=== PATIENT | male | born 1985 | race Caucasian/White ===

== ENCOUNTER → 2019-11-23 09:12 | Outpatient (CLI) | payer BC, SELFPAY | PROVIDERS: PCP Internal Medicine; Visit Provider Internal Medicine | DX: Z03.818 Encounter for observation for suspected exposure to other biological agents ruled out (principal) | CPT/HCPCS: U0003 ==

== ENCOUNTER 2020-06-20 11:19 | Emergency (ER) | payer BC, SELFPAY ==
[2020-06-20 11:29] VITALS: BP 117/68; PULSE 73; RESP 14; TEMP 36.4; O2SAT 99; BMI 26.2
--- NOTE | 2020-06-20 11:34 | XR_ITS ---
PROCEDURE: XR ANKLE RT MIN 3V CLINICAL INDICATION: basketball injury on 06/19/20 Injury with pain COMPARISON: No exams were available for comparison FINDINGS: There has been prior ORIF with 4 metallic screws within the anterior aspect of the distal tibia. Soft tissue swelling is present laterally. A well-circumscribed calcific density is present at the tip of the lateral malleolus consistent with an old fracture. No acute fracture or dislocation is evident. There are old fractures of the distal tibia and fibula. IMPRESSION: Soft tissue swelling with old injury. No acute finding Dictated by: Terry Ramsey MD 06/20/2020 12:23 Terry Ramsey MD in [place] 06/20/2020 12:23
[2020-06-20 12:31] VITALS: BP 115/69; PULSE 70; RESP 14; TEMP 36.6
--- NOTE | 2020-06-20 12:34 | HMH.EDUTC ---
[facility] [place] Clinical Impression: Right ankle injury Qualifiers: Encounter type: initial encounter Qualified Code(s): S99.911A - Unspecified injury of right ankle, initial encounter Right ankle sprain Qualifiers: Encounter type: initial encounter Involved ligament of ankle: unspecified ligament Qualified Code(s): S93.401A - Sprain of unspecified ligament of right ankle, initial encounter Disposition: Home, Self-Care Condition on Discharge: Good Instructions: Ankle Sprain, DI for Ankle Sprain Additional Instructions: Rest the extremity, apply ice for 15 minutes as tolerated three or four times per day, Wear the jenni wrap for compression, Elevate the extremity as tolerated while you are resting. Take ibuprofen for pain. I sent in a prescription to your pharmacy. Follow up with Dr. Harp (orthopedics). You have an appointment in her office on June 28 at 2:00 pm. Follow up with your regular doctor. GO TO THE ER FOR ANY WORSENING SYMPTOMS Prescriptions: Ibuprofen [Ibuprofen 800mg Tablet] 800 mg PO Q8HP PRN #30 tab PRN Reason: Moderate Pain Transmission Status: Received by [facility] Referrals: Carlos Delgado [Primary Care Provider] - Sierra Harp MD [Physician] - 06/28/20 2:00 pm (Appointment made for June 28 at 2:00 pm) Forms: Work/School Release Time of Disposition: 12:37 Medical Decision Making - Medical Records Medical records reviewed: No: I reviewed the patient's medical records. - Adolfo Inquiry Pt receiving controlled substance: No Vital Signs: 06/20/20 11:29 06/20/20 12:31 Temperature 97.6 F 98 F Temperature Source Oral Pulse Rate 70 Pulse Rate [Right] 73 Respiratory Rate 14 14 Blood Pressure 115/69 Blood Pressure [Right Arm] 117/68 Blood Pressure Mean [Right Arm] 84 Blood Pressure Source [Right Arm] Automatic Cuff Blood Pressure Position [Right Arm] Sitting 02 Sat by Pulse Oximetry 99 Oxygen Delivery Method Room Air - Radiology Data #1 Image(s): Ankle Image Reviewed: Yes I reviewed the patient's radiology image, Yes I have reviewed radiologist's interpretation Preliminary Findings: No Fracture Seen PROCEDURE: XR ANKLE RT MIN 3V CLINICAL INDICATION: basketball injury on 06/19/20 Injury with pain COMPARISON: No exams were available for comparison FINDINGS: There has been prior ORIF with 4 metallic screws within the anterior aspect of the distal tibia. Soft tissue swelling is present laterally. A well-circumscribed calcific density is present at the tip of the lateral malleolus consistent with an old fracture. No acute fracture or dislocation is evident. There are old fractures of the distal tibia and fibula. IMPRESSION: Soft tissue swelling with old injury. No acute finding Dictated by: Terry Ramsey MD 06/20/2020 12:23 Terry Ramsey MD in [place] 06/20/2020 12:23 Medical Decision Narrative: I called the ortho office (Dr. Harp's) to have ortho look at the ankle x-ray. I was instructed to put the patient in a tall walking boot and give crutches for ambulation. He may do partial weight bearing ambulation if it doesn't hurt too bad. F/u in her office next week. The patient refused the walking boot. He states that he will not use it and if he decides that he would use it. [facility] [place] - General Stated complaint: right ankle injury Time Seen by Provider: 06/20/20 11:35 Mode of Arrival: Ambulatory Source of Information: Patient Limitations: No Limitations Description of Symptoms (Recalled from Triage Doc. by RN): PT TWISTED HIS RIGHT ANKLE PLAYING BASKETBALL. VERY SWOLLEN ON THE OUTSIDE OF THE ANKLE. SOME BRUISING ON FOOT AND ANKLE. NUMBNESS, TINGLING AND PAIN TO R FOOT AND ANKLE. HEENT Symptoms (Recalled from RN notes): No Resp Symptoms (Recalled from RN notes): No Skin Symptoms (Recalled from RN notes): No MS Symptoms (Recalled from RN notes): Yes (R ANKLE PAIN AND SWELLING WITH NUMBNESS AND TINGLING
== END 2020-06-20 12:43 | disposition home or self-care (01) ==
PROVIDERS: Emergency Provider Nurse Practitioner Family; PCP Internal Medicine
DX: S93.401A Sprain of unspecified ligament of right ankle, initial encounter (principal); X50.1XXA Overexertion from prolonged static or awkward postures, initial encounter; Y93.67 Activity, basketball; Y92.89 Other specified places as the place of occurrence of the external cause
CPT/HCPCS: 29515; 73610; 99202; G0463

== ENCOUNTER 2024-07-06 12:49 | Outpatient (CLI) | payer BC, SELFPAY ==
--- NOTE | 2024-07-06 12:57 | XR_ITS ---
FINAL REPORT CLINICAL HISTORY: Right lateral elbow pain states he was sledding & hurt elbow, then picked up heavy object and having more pain FINDINGS: Two views of the elbow were obtained. There is no acute fracture or dislocation. The joint spaces are intact. The soft tissues are unremarkable. IMPRESSION: No acute fracture. Reviewed, Interpreted and Dictated by Александр Chávez MD Transcribed by Teresa Corrales Authenticated and [facility]
--- NOTE | 2024-07-06 12:57 | XR_ITS ---
FINAL REPORT CLINICAL HISTORY: Chronic neck pain and stiffness FINDINGS: SPINE CERVICAL COMPLETE/FLEXION & EXT Seven views of the cervical spine were obtained. The disc spaces are well-preserved. There is no malalignment. There is no instability with flexion and extension maneuver. IMPRESSION: Unremarkable cervical spine Reviewed, Interpreted and Dictated by Александр Chávez MD Transcribed by Teresa Corrales Authenticated and [facility]
[2024-07-06 17:29] LABS: Basophils % 0.8 % (0.1-2.0); Eosinophils # 0.2 K/mm3 (0.0-0.4); Hematocrit 46.5 % (42.0-52.0); Hemoglobin 16.1 g/dL (14.1-18.0); Lymphocytes # 1.6 K/mm3 (0.7-4.5); Lymphocytes % 30.7 % (10-50); Mean Corpuscular HGB Conc 34.6 g/dL (31.8-35.4); Mean Corpuscular Hemoglobin 30.9 pg (27.0-31.2); Mean Corpuscular Volume 89.3 fl (80-94); Mean Platelet Volume 12.5 fl (7.4-10.4); Monocytes # 0.5 K/mm3 (0.1-1.0); Monocytes % 8.7 % (1.7-9.3); Neutrophils % 56.6 % (37.0-80.0); Platelet Count 177 K/mm3 (142-424); Red Blood Count 5.21 M/mm3 (4.60-6.20); Red Cell Distribution Width 12.1 % (11.5-17.5); White Blood Count 5.3 K/mm3 (4.8-10.8)
[2024-07-06 18:36] LABS: Alanine Aminotransferase 28 U/L (12-78); Albumin Level 4.5 g/dl (3.5-5.0); Albumin/Globulin Ratio 1.4 (1.1-1.8); Alkaline Phosphatase 60 U/L (38-126); Anion Gap 12.6 mEq/L (5-15); Aspartate Amino Transferase 30 U/L (17-59); Bilirubin,Total 0.9 mg/dl (0.2-1.3); Blood Urea Nitrogen 18 mg/dl (9-20); Calcium 9.6 mg/dl (8.4-10.2); Carbon Dioxide 28 mmol/L (22.0-30.0); Chloride 103 mmol/L (98-107); Chol/HDL Ratio 3.7 (1-3.5); Cholesterol 178 mg/dl (140-200); Estimated Glomerular Filt Rate 61 ml/min (>60); GFR (African American) 74 ML/MIN (>60); Globulin 3.2 g/dL (1.3-3.2); Glucose 73 mg/dl (74-100); HDL Cholesterol 48 mg/dl (40-60); Potassium 4.6 mmoL/L (3.5-5.1); Sodium 139 mmol/L (136-145); Total Protein,Serum 7.7 g/dl (6.3-8.2); Triglycerides 78 mg/dl (30-150); VLDL Cholesterol 16 mg/dL (0-40)
[2024-07-06 18:47] LABS: Direct LDL Cholesterol 94.29 mg/dL (100-129)
[2024-07-08 10:09] LABS: Testosterone,Total 521 ng/dL (264-916)
== END 2024-07-06 23:59 | disposition home or self-care (01) ==
PROVIDERS: PCP Internal Medicine; Visit Provider Internal Medicine
DX: M54.2 Cervicalgia (principal); M25.521 Pain in right elbow; R03.0 Elevated blood-pressure reading, without diagnosis of hypertension; N52.9 Male erectile dysfunction, unspecified; E78.5 Hyperlipidemia, unspecified
CPT/HCPCS: 72052; 73070; 80053; 80061; 84403; 85025